=== PATIENT | male | born 1995 | race Caucasian/White ===

== ENCOUNTER 2018-05-15 15:37 | Emergency (ER) | payer OTHER ==
[2018-05-15 15:45] VITALS: BP 152/99
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
[2018-05-15] MEDS ORDERED: TDAP ADULT 0.5 ML INJ (BOOSTRIX) IM ONE (16:08)
== END 2018-05-15 17:32 | disposition home or self-care (01) ==
PROC: 0HQKXZZ Repair Right Lower Leg Skin, External Approach (ICD-10-PCS; principal; 2018-05-15)
DX: S81.811A Laceration without foreign body, right lower leg, initial encounter (principal); S81.011A Laceration without foreign body, right knee, initial encounter; V18.9XXA Unspecified pedal cyclist injured in noncollision transport accident in traffic accident, initial encounter; Y93.55 Activity, bike riding; Y92.9 Unspecified place or not applicable; Y99.9 Unspecified external cause status